=== PATIENT | male | born 1985 | race Caucasian/White ===

== ENCOUNTER 2016-09-16 09:54 | Emergency (ER) | payer SELFPAY ==
--- NOTE | 2016-09-16 10:41 | ER Document Report ---
ED General - General Chief Complaint: Cold Symptoms Stated Complaint: COUGH Mode of Arrival: Ambulatory Information source: Patient Notes: 31-year-old male presents with complaints of sore throat and intermittent fevers body aches over the past week and loss of voice yesterday. Patient admits to dry nonproductive cough TRAVEL OUTSIDE OF THE [place] IN LAST 30 DAYS: No - HPI Onset: Last week Onset/Duration: Persistent Quality of pain: Achy Severity: Mild Pain Level: 1 Associated symptoms: Nonproductive cough, Fever, Sore throat Exacerbated by: Denies Relieved by: Denies Similar symptoms previously: No Recently seen / treated by doctor: No - Related Data Allergies/Adverse Reactions: No Known Allergies Allergy (Verified 09/16/16 09:57) Past Medical History - Social History Smoking Status: Current Every Day Smoker Cigarette use (# per day): Yes Chew tobacco use (# tins/day): No Smoking Education Provided: No Family History: Reviewed & Not Pertinent Patient has suicidal ideation: No Patient has homicidal ideation: No Renal/ Medical History: Denies: Hx Peritoneal Dialysis Psychiatric Medical History: Reports: Hx Attention Deficit Hyperactivity Disorder, Hx Depression - Immunizations Immunizations up to date: Yes Hx Diphtheria, Pertussis, Tetanus Vaccination: Yes Review of Systems - Review of Systems Notes: REVIEW OF SYSTEMS: CONSTITUTIONAL : Admits fevers EENT: Admits sore throat loss of voice CARDIOVASCULAR: Denies chest pain. Denies palpitations or racing or irregular heart beat. Denies ankle edema. RESPIRATORY: Denies cough, cold, or chest congestion. Denies shortness of breath, difficulty breathing, or wheezing. GASTROINTESTINAL: Denies abdominal pain or distention. Denies nausea, vomiting , or diarrhea. Denies blood in vomitus, stools, or per rectum. Denies black, tarry stools. Denies constipation. GENITOURINARY: Denies difficulty urinating, painful urination, burning, frequency, blood in urine, or discharge. MUSCULOSKELETAL: Admits body aches SKIN: Denies rash, lesions or sores. HEMATOLOGIC : Denies easy bruising or bleeding. LYMPHATIC: Denies swollen, enlarged glands. NEUROLOGICAL: Denies confusion or altered mental status. Denies passing out or loss of consciousness. Denies dizziness or lightheadedness. Denies headache. Denies weakness or paralysis or loss of use of either side. Denies problems with gait or speech. Denies sensory loss, numbness, or tingling. Denies seizures. PSYCHIATRIC: Denies anxiety or stress. Denies depression, suicidal ideation, or homicidal ideation. ALL OTHER SYSTEMS REVIEWED AND NEGATIVE. Dictation was performed using [employer] voice recognition software PHYSICAL EXAMINATION: GENERAL: Well-appearing, well-nourished and in no acute distress. HEAD: Atraumatic, normocephalic. EYES: Pupils equal round and reactive to light, extraocular movements intact, sclera anicteric, conjunctiva are normal. ENT: Nares patent, oropharynx clear without exudates. Moist mucous membranes. NECK: Normal range of motion, supple without lymphadenopathy LUNGS: Breath sounds clear to auscultation bilaterally and equal. No wheezes rales or rhonchi. HEART: Regular rate and rhythm without murmurs ABDOMEN: Soft, nontender, nondistended abdomen. No guarding, no rebound. No masses appreciated. Musculoskeletal: Normal range of motion, no pitting or edema. No cyanosis. NEUROLOGICAL: Cranial nerves grossly intact. Normal speech, normal gait. Normal sensory, motor exams PSYCH: Normal mood, normal affect. SKIN: Warm, Dry, normal turgor, no rashes or lesions noted. Physical Exam - Vital signs Vitals: Temp Pulse Resp BP Pulse Ox 98.2 F 93 16 144/78 H 98 09/16/16 09:58 09/16/16 09:58 09/16/16 09:58 09/16/16 09:58 09/16/16 09:58 Course - Re-evaluation Re-evalutation: 09/16/16 10:41 Physical examination noted no significant abnormality. Sharp influenza are pending but patient looks well otherwise and has laryngitis at this point 09/16/16 11:05 Strep is positive, influenza negative patient will be treated with amoxicillin otherwise well-appearing in no distress 09/16/16 11:08 After performing a Medical Screening Examination, I estimate there is LOW risk for ACUTE CORONARY SYNDROME, RESPIRATORY FAILURE, SEPSIS OR MENINGITIS, thus I consider the discharge disposition reasonable. The patient and I have discussed the diagnosis and risks, and we agree with discharging home with close follow- up. We also discussed returning to the Emergency Department immediately if new or worsening symptoms occur. We have discussed the symptoms which are most concerning (e.g., changing or worsening pain, trouble swallowing or breathing, neck stiffness, fever) that necessitate immediate return. - Vital Signs Vital signs: Temp Pulse Resp BP Pulse Ox 98.2 F 93 16 144/78 H 98 09/16/16 09:58 09/16/16 09:58 09/16/16 09:58 09/16/16 09:58 09/16/16 09:58 Discharge - Discharge Clinical Impression: Strep pharyngitis, Body aches Fever Qualifiers: Fever type: unspecified Qualified Code(s): R50.9 - Fever, unspecified Condition: Stable Disposition: HOME, SELF-CARE Instructions: Strep Throat ([facility]) Additional Instructions: Follow up with your physician tomorrow for further care or return to the ED IMMEDIATELY if symptoms worsen or new concerns occur Prescriptions: Amoxicillin 875 mg PO BID #20 tablet
[2016-09-16 11:18] VITALS: BP 130/83
== END 2016-09-16 11:21 | disposition home or self-care (01) ==
LOC: ER 09:54
DX: J02.0 Streptococcal pharyngitis (principal); R52 Pain, unspecified; R50.9 Fever, unspecified; R05 Cough; F17.210 Nicotine dependence, cigarettes, uncomplicated
CPT/HCPCS: 87804; 87880; 99283

== ENCOUNTER 2017-01-07 20:27 | Emergency (ER) | payer SELFPAY ==
--- NOTE | 2017-01-07 21:26 | RADIOLOGY REPORT (SQ) ---
EXAM DESCRIPTION: CHEST SINGLE VIEW COMPLETED DATE/TIME: 01/07/2017 9:17 pm REASON FOR STUDY: chest pain COMPARISON: November 2012 EXAM PARAMETERS: NUMBER OF VIEWS: One view. TECHNIQUE: Single frontal radiographic view of the chest acquired. RADIATION DOSE: NA LIMITATIONS: None. FINDINGS: LUNGS AND PLEURA: No opacities, masses or pneumothorax. No pleural effusion. MEDIASTINUM AND HILAR STRUCTURES: No masses. Contour normal. HEART AND VASCULAR STRUCTURES: Heart normal in size. Normal vasculature. BONES: No acute findings. HARDWARE: None in the chest. OTHER: No other significant finding. IMPRESSION: NO ACUTE RADIOGRAPHIC FINDING IN THE CHEST. TECHNICAL DOCUMENTATION: JOB ID: [id number]
[2017-01-07 21:30] LABS: ABSOLUTE EOSINOPHILS # (AUTO) 0.1 10^3/uL (0.0-0.6); ABSOLUTE LYMPHOCYTES (AUTO) 2.3 10^3/uL (0.5-4.7); ABSOLUTE MONOCYTES (AUTO) 0.8 10^3/uL (0.1-1.4); ABSOLUTE NEUT (AUTO) 4.8 10^3/uL (1.7-8.2); BASOPHILS % (AUTO) 0.6 % (0-2); EOSINOPHILS % (AUTO) 1.4 % (0-6); HEMATOCRIT 42.4 % (37.9-51.0); HEMOGLOBIN 14.5 g/dL (13.5-17.0); HGB HCT DIFFERENCE 1.1; LYMPHOCYTES % (AUTO) 28.9 % (13-45); MEAN CORPUSCULAR HEMOGLOBIN 32.1 pg (27.0-33.4); MEAN CORPUSCULAR HGB CONC 34.2 g/dL (32.0-36.0); MEAN CORPUSCULAR VOLUME 94 fl (80-97); MONOCYTES % (AUTO) 9.4 % (3-13); RED BLOOD COUNT 4.52 10^6/uL (4.35-5.55); RED CELL DISTRIBUTION WIDTH 12.4 % (11.5-14.0); SEGMENTED NEUTROPHILS % (AUTO) 59.7 % (42-78); WHITE BLOOD COUNT 8.1 10^3/uL (4.0-10.5)
[2017-01-07 21:48] LABS: ALANINE AMINOTRANSFERASE 41 U/L (21-72); ALBUMIN 4.4 g/dL (3.5-5.0); ALKALINE PHOSPHATASE 81 U/L (38-126); ANION GAP 12 (5-19); ASPARTATE AMINO TRANSFERASE 23 U/L (17-59); BILIRUBIN,DIRECT 0.3 mg/dL (0.0-0.4); BILIRUBIN,TOTAL 0.5 mg/dL (0.2-1.3); BLOOD UREA NITROGEN 14 mg/dL (7-20); CARBON DIOXIDE 25 mmol/L (22-30); CHLORIDE 106 mmol/L (98-107); CREATINE KINASE 174 U/L (55-170); CREATININE RESULT 0.76 mg/dL (0.52-1.25); GLUCOSE 83 mg/dL (75-110); SODIUM 142.5 mmol/L (137-145); TOTAL PROTEIN 7.5 g/dL (6.3-8.2)
[2017-01-07 22:12] LABS: CREATINE KINASE MB 1.01 ng/mL (<4.55)
[2017-01-07 22:18] LABS: TROPONIN I < 0.012 ng/mL
--- NOTE | 2017-01-07 22:24 | ER Document Report ---
ED General - General Chief Complaint: Chest Pain > 30 Stated Complaint: CHEST PAIN Time Seen by Provider: 01/07/17 22:11 Notes: Patient is a 31-year-old male comes emergency department for evaluation of sharp pains across the left side of his chest that have been present since yesterday. 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 He states that he was having some left-sided chest pains yesterday and he also had it this morning , he states it is improved now but he came in for evaluation. He denies any current symptoms including shortness of breath. He denies smoking, alcohol use , or any recreational drug use. He denies history of the same except for occasionally passing out secondary to heat stroke. He states his father had an ME but it was when he was elderly, no early cardiac disease in the family. TRAVEL OUTSIDE OF THE [place] IN LAST 30 DAYS: No - Related Data Allergies/Adverse Reactions: No Known Allergies Allergy (Verified 01/07/17 20:38) Home Medications: Current Home Medications Esomeprazole Mag Trihydrate [Nexium] 1 cap PO QAM 01/07/17 [History] Past Medical History - General Information source: Patient - Social History Smoking Status: Never Smoker Frequency of alcohol use: Occasional Drug Abuse: None Lives with: Family Family History: Reviewed & Not Pertinent Patient has suicidal ideation: No Patient has homicidal ideation: No Renal/ Medical History: Denies: Hx Peritoneal Dialysis GI Medical History: Reports: Hx Gastroesophageal Reflux Disease Psychiatric Medical History: Reports: Hx Attention Deficit Hyperactivity Disorder, Hx Depression Surgical Hx: Negative - Immunizations Immunizations up to date: Yes Hx Diphtheria, Pertussis, Tetanus Vaccination: Yes Review of Systems - Review of Systems Constitutional: No symptoms reported EENT: No symptoms reported Cardiovascular: See HPI Respiratory: No symptoms reported Gastrointestinal: No symptoms reported Genitourinary: No symptoms reported Male Genitourinary: No symptoms reported Musculoskeletal: See HPI Skin: No symptoms reported Hematologic/Lymphatic: No symptoms reported Neurological/Psychological: See HPI Physical Exam - Vital signs Vitals: Temp Pulse Resp BP Pulse Ox 98.2 F 92 20 129/80 H 96 01/07/17 20:39 01/07/17 20:39 01/07/17 20:39 01/07/17 20:39 01/07/17 20:39 Interpretation: Normal - General General appearance: Appears well, Alert In distress: None - HEENT Head: Normocephalic, Atraumatic Eyes: Normal Conjunctiva: Normal Extraocular movements intact: Yes Eyelashes: Normal Pupils: PERRL Nasal: Normal Mouth/Lips: Normal Mucous membranes: Normal Pharynx: Normal Neck: Normal - Respiratory Respiratory status: No respiratory distress Chest status: Tender - reproduceable tenderness over the left chest wall; no erythema, induration, swelling, or other abnormality noted Breath sounds: Normal Chest palpation: Normal - Cardiovascular Rhythm: Regular. No: Tachycardia Heart sounds: Normal auscultation, S1 appreciated, S2 appreciated Murmur: No - Abdominal Inspection: Normal Distension: No distension Bowel sounds: Normal Tenderness: Nontender Organomegaly: No organomegaly - Back Back: Normal, Nontender. No: Tender - Extremities General upper extremity: Normal inspection, Nontender, Normal color, Normal ROM , Normal temperature General lower extremity: Normal inspection, Nontender, Normal color, Normal ROM , Normal temperature, Normal weight bearing. 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 No hypertrophy. Patient has no murmur on examination. Cardiac monitoring during this stay shows no concerning arrhythmias or abnormalities. Chest x-ray unremarkable. CBC, chemistry, cardiac enzymes which were performed on protocol before I saw the patient are normal. Patient with no family history of early cardiac disease. CK is slightly elevated, patient has chest wall tenderness on the left side of his chest and this is worse with movement but it is still mild. I discussed all findings with patient in detail. Patient has not had symptoms since yesterday, symptoms have been while he was working outside in the heat. Very low suspicion of acute life-threatening arrhythmia or other acute life- threatening abnormality. I did discuss cardiology follow-up, referral placed. Discussed treatment, recommendations, return precautions. Patient states understanding and agreement. - Vital Signs Vital signs: Temp Pulse Resp BP Pulse Ox 97.4 F 92 16 122/73 100 01/07/17 22:45 01/07/17 20:39 01/07/17 22:46 01/07/17 22:47 01/07/17 22:46 - Laboratory Result Diagrams: 01/07/17 21:10 01/07/17 21:10 Laboratory results interpreted by me: 01/07/17 21:10 Creatine Kinase 174 H Discharge - Discharge Clinical Impression: Chest wall pain Episode of syncope Qualifiers: Syncope type: unspecified Qualified Code(s): R55 - Syncope and collapse Condition: Stable Disposition: HOME, SELF-CARE Additional Instructions: Your workup today including EKG, chest x-ray, and laboratory studies show no abnormality except a slightly elevated with your chest wall pain. Hydrate, take the anti-inflammatory as prescribed, I recommend a follow-up with the primary care referral for additional evaluation and also a follow-up with the cardiology referral for a Holter monitor testing as we discussed. Return to emergency department for any returned or worsening symptoms. Prescriptions: Naproxen 500 mg PO BID #20 tablet Forms: Return to Work Referrals: [facility] [Provider Group] - Follow up as needed REINA HEDRICK MD [ACTIVE STAFF] - Follow up as needed
[2017-01-07 22:52] VITALS: BP 122/73
--- NOTE | 2017-01-08 17:18 | EKG REPORT ---
SEVERITY:- NORMAL ECG - SINUS RHYTHM : Confirmed by: Saray Carter MD 08-Jan-2017 17:17:58
== END 2017-01-07 22:53 | disposition home or self-care (01) ==
LOC: ER 20:27
DX: R07.89 Other chest pain (principal); R55 Syncope and collapse; Z82.49 Family history of ischemic heart disease and other diseases of the circulatory system
CPT/HCPCS: 36415; 71010; 80053; 82550; 82553; 84484; 85025; 93005; 93010; 99285

== ENCOUNTER 2017-12-29 09:36 | Emergency (ER) | payer MEDICAID ==
[2017-12-29] MEDS ORDERED: DEXAMETHASONE SOD PHOS INJ 10 MG/1 ML VIAL IM ONE (10:10)
[2017-12-29] MEDS ORDERED: IPRATROPIUM/ALBUTEROL 0.5-2.5 MG/3 ML AMPUL NEB ONE (10:10)
--- NOTE | 2017-12-29 10:13 | ER Document Report ---
ED Respiratory Problem - General Chief Complaint: Cough Stated Complaint: COUGH Time Seen by Provider: 12/29/17 10:05 Mode of Arrival: Ambulatory Information source: Patient Notes: 32-year-old male presents to ED for cough congestion for a month and half. He states he did have some clear drainage but that is gone. He states he has had no fevers. He states that last night that the cough got much worse and at this point he decided to come to the emergency room. His last night when he was coughing he had some current discomfort in his chest. Is alert and oriented respirations regular and unlabored speaking in full sentences. He does cough when he tries to take deep breaths and has a mild wheeze. TRAVEL OUTSIDE OF THE [place] IN LAST 30 DAYS: No - HPI Patient complains to provider of: Cough Onset: Other - Month and a half Duration: Continuous Initiating Event: URI Quality of pain: Other - States his chest had some discomfort last night when he was coughing Severity: Mild Pain Level: 1 Context: Smoker Cough: Nonproductive - She had clear drainage earlier in the month but none now Sputum amount: None Associated symptoms: Congestion, Cough, PND, Runny nose. denies: Fever Similar symptoms previously: Yes Recently seen / treated by doctor: No - Related Data Allergies/Adverse Reactions: No Known Allergies Allergy (Verified 01/07/17 20:38) Past Medical History - General Information source: Patient - Social History Smoking Status: Current Every Day Smoker Cigarette use (# per day): Yes - Cigarettes a day Chew tobacco use (# tins/day): No Smoking Education Provided: Yes - 4 minutes Frequency of alcohol use: None Drug Abuse: None Lives with: Spouse/Significant other Family History: Reviewed & Not Pertinent Patient has suicidal ideation: No Patient has homicidal ideation: No Pulmonary Medical History: Reports: None EENT Medical History: Reports: None Neurological Medical History: Reports: None Endocrine Medical History: Reports: None Renal/ Medical History: Reports: None Malignancy Medical History: Reports None GI Medical History: Reports: Hx Gastroesophageal Reflux Disease Musculoskeletal Medical History: Reports Hx Musculoskeletal Trauma - Nose and finger Skin Medical History: Reports None Psychiatric Medical History: Reports: Hx Attention Deficit Hyperactivity Disorder, Hx Depression Traumatic Medical History: Reports: Hx Fractures Infectious Medical History: Reports: None - Bushra finger Surgical Hx: Negative Past Surgical History: Reports: None - Immunizations Immunizations up to date: Yes Hx Diphtheria, Pertussis, Tetanus Vaccination: Yes Review of Systems - Review of Systems Constitutional: No symptoms reported EENT: No symptoms reported Cardiovascular: No symptoms reported Respiratory: Cough, Short of breath, Wheezing Gastrointestinal: No symptoms reported Genitourinary: No symptoms reported Male Genitourinary: No symptoms reported Musculoskeletal: No symptoms reported Skin: No symptoms reported Hematologic/Lymphatic: No symptoms reported Neurological/Psychological: No symptoms reported Physical Exam - Vital signs Vitals: Temp Pulse Resp BP Pulse Ox 97.8 F 96 18 138/86 H 97 12/29/17 09:42 12/29/17 09:42 12/29/17 09:42 12/29/17 09:42 12/29/17 09:42 Interpretation: Normal - General General appearance: Appears well, Alert - HEENT Head: Normocephalic, Atraumatic Eyes: Normal Pupils: PERRL - Respiratory Respiratory status: No respiratory distress Chest status: Nontender Breath sounds: Nonproductive cough, Wheezing Chest palpation: Normal - Cardiovascular Rhythm: Regular Heart sounds: Normal auscultation Murmur: No - Abdominal Inspection: Normal Distension: No distension Bowel sounds: Normal Tenderness: Nontender Organomegaly: No organomegaly - Back Back: Normal, Nontender - Extremities General upper extremity: Normal inspection, Nontender, Normal color, Normal ROM , Normal temperature General lower extremity: Normal inspection, Nontender, Normal color, Normal ROM , Normal temperature, Normal weight bearing. No: Maira's sign - Neurological Neuro grossly intact: Yes Cognition: Normal Orientation: AAOx4 Calli Coma Scale Eye Opening: Spontaneous [place] Coma Scale Verbal: Oriented [place] Coma Scale Motor: Obeys Commands Calli Coma Scale Total: 15 Speech: Normal Motor strength normal: LUE, RUE, LLE, RLE Sensory: Normal - Psychological Associated symptoms: Normal affect, Normal mood - Skin Skin Temperature: Warm Skin Moisture: Dry Skin Color: Normal Course - Re-evaluation Re-evalutation: 12/29/17 11:50 X-rays discussed with patient and written report of x-ray given the patient. Patient of assessment was consistent with an upper respiratory infection with wheezing. He was treated with albuterol and steroids. He will be discharged home with an albuterol inhaler prescription and steroids. He was instructed to follow-up with the primary doctors. After performing a Medical Screening Examination, I estimate there is LOW risk for ACUTE CORONARY SYNDROME, RESPIRATORY FAILURE, SEPSIS OR MENINGITIS, thus I consider the discharge disposition reasonable. I have reevaluated this patient multiple times and no significant life threatening changes are noted. The patient and I have discussed the diagnosis and risks, and we agree with discharging home with close follow-up. We also discussed returning to the Emergency Department immediately if new or worsening symptoms occur. We have discussed the symptoms which are most concerning (e.g., changing or worsening pain, trouble swallowing or breathing, neck stiffness, fever) that necessitate immediate return. - Vital Signs Vital signs: Temp Pulse Resp BP Pulse Ox 97.8 F 93 16 133/77 H 97 12/29/17 11:57 12/29/17 11:57 12/29/17 11:57 12/29/17 11:57 12/29/17 11:57 - Diagnostic Test Radiology reviewed: Image reviewed, Reports reviewed Discharge - Discharge Clinical Impression: URI (upper respiratory infection) Qualifiers: URI type: unspecified URI Qualified Code(s): J06.9 - Acute upper respiratory infection, unspecified Condition: Stable Disposition: HOME, SELF-CARE Instructions: Family Physicians / Practices Additional Instructions: UPPER RESPIRATORY ILLNESS: You have a viral infection of the respiratory passages -- a "cold." This common infection causes nasal congestion, drainage, and often sore throat and cough. It is highly contagious. The disease usually lasts about 10 to 14 days. There is no "cure" for the viral infection -- it must run its course. If there is a complication, such as bacterial infection in the nose, sinuses, middle ear, or bronchial tubes, antibiotics may be required. The antibiotics won't affect the virus. Drink plenty of fluids. A humidifier may help. An expectorant medication or decongestant may make you more comfortable. Use acetaminophen or ibuprofen for fever or aches. See the doctor if fever persists over two days, if there is any significant worsening of your symptoms, or if you simply fail to improve as expected. BRONCHOSPASM: You have tightness in the bronchial tubes, called bronchospasm. This often occurs with bronchial infections. Allergies, inhaled chemicals, and polluted or cold air can also provoke bronchospasm. It's more likely in patients with asthma in the family. Emergency treatment of bronchospasm may include adrenaline shots or bronchodilator aerosol. You may feel lightheaded and have a rapid pulse for an hour or two. Rest and get plenty of fluids. At home, we'll treat you with a bronchodilator inhaler. Antibiotics and corticosteroids may be required for some patients. Until you recover, avoid chemical fumes, dusts, pollens, and exercising in very cold or dry air. If you smoke, stop now!! If you develop a fever, increased wheezing, chest pain, or severe shortness of breath, you should contact the doctor immediately. COUGH-SUPPRESSANT & EXPECTORANT MEDICATION: You are to use a cough medication as needed for relief of symptoms. This medicine is a combination of an expectorant (to make the mucous thinner and more easily "coughed up") and a cough suppressant (to reduce the frequency of coughing). The cough-suppressant medicine is related to narcotics. You may experience mild nausea and sleepiness. Some patients who are very sensitive to narcotics may have stomach pain from this medicine. Taking the medicine with food reduces these side effects. Do not drive or work with machinery until you know how this medicine affects you. The expectorant should have no side effects. Iodine-containing expectorants (such as organidin) should not be taken by persons with active thyroid disease unless approved by your doctor. Call the doctor if you develop shortness of breath, hives, rash, itching, lightheadedness, or severe nausea and vomiting. INHALED BRONCHODILATORS: You have received a treatment of and/or prescription for an inhaled bronchodilator -- a medication which stimulates the airways in the lung to dilate. This improves the flow of air in asthma, bronchitis, and emphysema. These medicines have some similarity to adrenaline, and can cause similar side effects: shakiness, racing heart, and a sense of nervousness. These side effects decrease with time. Contact your doctor if these side effects are severe. Do not over-use the medicine. Too-frequent use of the inhaler may make it ineffective. Call your doctor if the inhaler is not controlling your symptoms at the prescribed doses. STEROID MEDICATION: You have been given an injection of or oral medicine of the cortisone/ steroid class. This medication is used to control inflammation or allergy. Gerardo t is usually only given for a short period of time, until the acute process subsides. There are usually no side effects from short-term use of cortisone-like medications. Some persons feel an increased sense of well-being and are not sleepy at bedtime. Long-term use of cortisone medications is best avoided, unless required for a severe condition. If your condition does not remit, or relapses after the course of corticosteroid medication, you should consult your physician. USE OF ACETAMINOPHEN (Tylenol): Acetaminophen may be taken for pain relief or fever control. It's much safer than aspirin, offering a wider range of "safe" dosages. It is safe during . Some brand names are Tylenol, Panadol, Datril, Anacin 3, Tempra, and Liquiprin. Acetaminophen can be repeated every four hours. The following are maximum recommended dosages: >89 pounds or adults 650 mg to 900 mg Acetaminophen can be repeated every four hours. Maximum dose not to exceed 4000 mg a day. SMOKING: If you smoke, you should stop smoking. The tar and chemicals in cigarette smoke are harmful. Smoking has been shown to cause: emphysema chronic bronchitis lung cancer mouth and throat cancer stomach and pancreas cancer premature aging defects In addition, smoking increases ear and lung infections in children of smokers. FOLLOW-UP CARE: If you have been referred to a physician for follow-up care, call the physician s office for an appointment as you were instructed or within the next two days. If you experience worsening or a significant change in your symptoms, notify the physician immediately or return to the Emergency Department at any time for re-evaluation. Prescriptions: Albuterol Sulfate [Proair HFA Inhalation Aerosol 8.5 gm MDI] 2 puff IH Q4H PRN # 1 mdi PRN Reason: Prednisone [Sterapred Ds] 1 pkg PO ASDIR PRN 12 Days [email or web address] PRN Reason: Forms: Elevated Blood Pressure, Smoking Cessation Education, Return to Work
[2017-12-29] MEDS: ALBUTEROL SULFATE 0.083% NEB 2.5 MG/3 ML AMPUL NEB SCH ×2 (10:18→10:36)
--- NOTE | 2017-12-29 11:23 | RADIOLOGY REPORT (SQ) ---
EXAM DESCRIPTION: CHEST 2 VIEWS COMPLETED DATE/TIME: 12/29/2017 10:55 am REASON FOR STUDY: cough congestion COMPARISON: Chest films 01/07/2017, 11/24/2012, 06/15/2010 EXAM PARAMETERS: NUMBER OF VIEWS: two views TECHNIQUE: Digital Frontal and Lateral radiographic views of the chest acquired. RADIATION DOSE: NA LIMITATIONS: none FINDINGS: LUNGS AND PLEURA: No opacities, masses or pneumothorax. No pleural effusion. MEDIASTINUM AND HILAR STRUCTURES: No masses or contour abnormalities. HEART AND VASCULAR STRUCTURES: Heart normal size. No evidence for failure. BONES: No acute findings. HARDWARE: None in the chest. OTHER: No other significant finding. IMPRESSION: NO ACUTE RADIOGRAPHIC FINDING IN THE CHEST. TECHNICAL DOCUMENTATION: JOB ID: [id number] [employer]- All Rights Reserved Reading location - IP/workstation name: [email or web address]
[2017-12-29 12:00] VITALS: BP 133/77
== END 2017-12-29 12:00 | disposition home or self-care (01) ==
LOC: ER 09:36
DX: J06.9 Acute upper respiratory infection, unspecified (principal); F17.210 Nicotine dependence, cigarettes, uncomplicated
CPT/HCPCS: 94640; 99283; 96372; 71046; J1100; J7620

== ENCOUNTER 2017-12-31 10:00 | Emergency (ER) | payer MEDICAID ==
--- NOTE | 2017-12-31 10:28 | ER Document Report ---
ED Medical Screen (RME) - General Chief Complaint: Shortness Of Breath Stated Complaint: SHORT OF BREATH/COUGHING Time Seen by Provider: 12/31/17 10:18 Notes: RAPID MEDICAL EVALUATION DISCLOSURE I have seen this patient as part of a Rapid Medical Evaluation and, if applicable, placed any initially appropriate orders. The patient will be seen and fully evaluated, including a full history and physical exam, by a provider ( in Main ED or Fast Track) when a room becomes available. 32-year-old male here with complaints of shortness of breath cough productive of bloody sputum chest tightness ongoing for the past month. 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 He has tried cough medication without relief. He was seen here several days ago and was prescribed prednisone and albuterol inhaler and states these are not helping whatsoever. He reports that smoking a cigarette will help soothe his cough for about 2 hours but then he starts to cough again and have the other symptoms. His tightness is not worse with exertion but is worse with lying flat. He denies any history of PE DVT but has a strong family history of same. He does also do a lot of driving and recently had an extended car ride to [place]. EXAM CTAB Tachycardic TRAVEL OUTSIDE OF THE [place] IN LAST 30 DAYS: No - Related Data Allergies/Adverse Reactions: No Known Allergies Allergy (Verified 12/31/17 10:24) Past Medical History - Social History Chew tobacco use (# tins/day): No Frequency of alcohol use: Occasional Drug Abuse: None Renal/ Medical History: Denies: Hx Peritoneal Dialysis GI Medical History: Reports: Hx Gastroesophageal Reflux Disease Musculoskeltal Medical History: Reports Hx Musculoskeletal Trauma - Nose and finger Psychiatric Medical History: Reports: Hx Attention Deficit Hyperactivity Disorder, Hx Depression Traumatic Medical History: Reports: Hx Fractures - Immunizations Immunizations up to date: Yes Hx Diphtheria, Pertussis, Tetanus Vaccination: Yes Physical Exam - Vital signs Vitals: Temp Pulse Resp BP Pulse Ox 97.7 F 111 H 17 128/80 H 97 12/31/17 10:13 12/31/17 10:13 12/31/17 10:13 12/31/17 10:13 12/31/17 10:13 Course - Vital Signs Vital signs: Temp Pulse Resp BP Pulse Ox 97.7 F 111 H 17 128/80 H 97 12/31/17 10:13 12/31/17 10:13 12/31/17 10:13 12/31/17 10:13 12/31/17 10:13
--- NOTE | 2017-12-31 11:26 | RADIOLOGY REPORT (SQ) ---
EXAM DESCRIPTION: CTA CHEST COMPLETED DATE/TIME: 12/31/2017 11:10 am REASON FOR STUDY: coughing blood SOB; eval PE COMPARISON: CT chest 02/19/2015 TECHNIQUE: CT scan of the chest performed using helical scanning technique with dynamic intravenous contrast injection. Images reviewed with lung, soft tissue and bone windows. Reconstructed coronal and sagittal MPR images reviewed. Additional 3 dimensional post-processing performed to develop Maximal Intensity Projection images (PA P). All images stored on PACS. All CT scanners at this facility use dose modulation, iterative reconstruction, and/or weight based d osing when appropriate to reduce radiation dose to as low as reasonably achievable (ALARA). [facility]: Dose Right [facility]: CareDose [facility]: Dose Right [facility]: Teradose 4D [facility]: Peter Blueberry CONTRAST TYPE AND DOSE: contrast/concentration: Isovue 370.00 mg/ml; Total Contrast Delivered: 65.0 ml; Total Saline Delivered: 110.0 ml Contrast bolus optimized for the pulmonary arteries. Not diagnostic for the aorta. RENAL FUNCTION: None required. The patient is less than 50 years old. RADIATION DOSE: CT Rad equipment meets quality standard of care and radiation dose reduction techniq ues were employed. CTDIvol: 9.4 - 9.5 mGy. DLP: 358 mGy-cm. . LIMITATIONS: None. FINDINGS: LUNGS AND PLEURA: No masses, infiltrates, or pneumothorax. No pleural effusions or pleura l calcifications. AORTA AND GREAT VESSELS: No aneurysm. Contrast bolus not optimized for the aorta. HEART: No pericardial effusion. No significant coronary artery calcifications. PULMONARY ARTERIES: No emboli visualized in the main pulmonary arteries or the segmental branches. HILAR AND MEDIASTINAL STRUCTURES: No identified masses or abnormal nodes. HARDWARE: None in the chest. UPPER ABDOMEN: No significant findings. Limited exam. THYROID AND OTHER SOFT TISSUES: No masses. No adenopathy. BONES: No acute or significant finding. 3D MIPS: Confirm above findings. OTHER: No other significant finding. IMPRESSION: NORMAL CTA OF THE CHEST. NO PULMONARY EMBOLI. COMMENT: Quality ID # [id number]: Final reports with documentation of one or more dose reduction techniques (e.g., Automated exposure control, adjustment of the mA and/or kV according to patient size, use of iterative reconstruction technique) TECHNICAL DOCUMENTATION: JOB ID: [id number] [employer]- All Rights Reserved Reading location - IP/workstation name: [email or web address]
--- NOTE | 2017-12-31 13:18 | ER Document Report ---
ED Respiratory Problem - General Chief Complaint: Shortness Of Breath Stated Complaint: SHORT OF BREATH/COUGHING Time Seen by Provider: 12/31/17 10:18 Mode of Arrival: Ambulatory Information source: Patient Notes: Patient is a 32-year-old female who presents to the ER today for shortness of breath 1 month. 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 Patient had a normal chest x-ray at that time and was discharged home. Patient has no history of asthma, has not had any coughing, fever, chills, chest pain. Patient has no history of anxiety. TRAVEL OUTSIDE OF THE [place] IN LAST 30 DAYS: No - Related Data Allergies/Adverse Reactions: No Known Allergies Allergy (Verified 12/31/17 10:24) Past Medical History - General Information source: Patient - Social History Smoking Status: Current Every Day Smoker Chew tobacco use (# tins/day): No Frequency of alcohol use: Occasional Drug Abuse: None Family History: Reviewed & Not Pertinent Patient has suicidal ideation: No Patient has homicidal ideation: No Renal/ Medical History: Denies: Hx Peritoneal Dialysis GI Medical History: Reports: Hx Gastroesophageal Reflux Disease Musculoskeletal Medical History: Reports Hx Musculoskeletal Trauma - Nose and finger Psychiatric Medical History: Reports: Hx Attention Deficit Hyperactivity Disorder, Hx Depression Traumatic Medical History: Reports: Hx Fractures - Immunizations Immunizations up to date: Yes Hx Diphtheria, Pertussis, Tetanus Vaccination: Yes Review of Systems - Review of Systems Constitutional: No symptoms reported EENT: No symptoms reported Cardiovascular: No symptoms reported Respiratory: See HPI Gastrointestinal: No symptoms reported Genitourinary: No symptoms reported Male Genitourinary: No symptoms reported Musculoskeletal: No symptoms reported Skin: No symptoms reported Hematologic/Lymphatic: No symptoms reported Neurological/Psychological: No symptoms reported Physical Exam - Vital signs Vitals: Temp Pulse Resp BP Pulse Ox 97.7 F 111 H 17 128/80 H 97 12/31/17 10:13 12/31/17 10:13 12/31/17 10:13 12/31/17 10:13 12/31/17 10:13 - Notes Notes: PHYSICAL EXAMINATION: GENERAL: Anxious appearing, but in no acute distress. HEAD: Atraumatic, normocephalic. EYES: Pupils equal round and reactive to light, extraocular movements intact, sclera anicteric, conjunctiva are normal. ENT: ear canals without erythema or foreign body, TMs pearly díaz with good bony landmarks, nares patent, oropharynx clear without exudates. Moist mucous membranes. NECK: Normal range of motion, supple without lymphadenopathy LUNGS: lurching forward his upper body, otherwise CTAB and equal. No wheezes rales or rhonchi. HEART: Regular rate and rhythm without murmurs ABDOMEN: Soft, no tenderness. No guarding, no rebound BACK: no vertebral tenderness, normal ROM GI/: no CVA tenderness EXTREMITIES: Normal range of motion, no pitting edema. No cyanosis. NEUROLOGICAL: Cranial nerves grossly intact. Normal sensory/motor exams. PSYCH: anxious SKIN: Warm, Dry, normal turgor, no rashes or lesions noted Course - Re-evaluation Re-evalutation: 12/31/17 16:54 Patient has a normal pulse ox today of 98% on room air, respirations of 20 and below the entire time here in the emergency department. The only abnormal vital sign patient had here was tachycardia as high as 111 bpm. Patient has a normal chest x-ray from 2 days ago and a normal CTA today that was ordered in triage to rule out pulmonary embolism. Patient is lurching his upper body forward stating that he is short of breath but his lungs are clear to auscultation and he showing no other signs of shortness of breath. Patient has a normal VBG. does state that he has been under a lot of stress recently. Patient stopped having any symptoms after Ativan was given today. I will provide patient with Vistaril as needed and advised that he follow-up with mental health or at least his primary care provider. I did offer consultation with mental health today but patient declines. - Vital Signs Vital signs: Temp Pulse Resp BP Pulse Ox 97.7 F 111 H 12 118/82 98 12/31/17 16:19 12/31/17 10:13 12/31/17 16:16 12/31/17 16:16 12/31/17 16:16 Discharge - Discharge Clinical Impression: SOB (shortness of breath), Anxiety Condition: Stable Disposition: HOME, SELF-CARE Additional Instructions: Return immediately for any new or worsening symptoms. Follow up with primary care provider, call tomorrow to make followup appointment. I believe all of your symptoms are being caused by panic or anxiety about not being able to take a deep breath, but is actually causing you to feel like you can't. All your lung workup today is normal. If you are still concerned about something going on in your lungs, PLEASE follow up with Dr. Malloy, who's a lung specialist, he'd be happy to see you! I've prescribed you an anti-anxiety medication because when I gave you some today, it took away your symptoms completely. Please take it every 6-8 hours as needed for your symptoms. Follow up with your primary care provider. Prescriptions: Hydroxyzine Pamoate [Vistaril 25 mg Capsule] 1 - 2 cap PO Q8 PRN #15 capsule PRN Reason: Forms: Return to Work
[2017-12-31] MEDS ORDERED: LORAZEPAM INJ 2 MG/1 ML VIAL IV ONE (13:24)
[2017-12-31 14:52] LABS: VENOUS BLOOD BASE EXCESS -0.3 mmol/L; VENOUS BLOOD HCO3 25.3 mmol/L (20-32); VENOUS BLOOD PCO2 44.6 mmHg (35-63); VENOUS BLOOD PH 7.37 (7.30-7.42)
[2017-12-31 16:19] VITALS: BP 118/82
--- NOTE | 2017-12-31 22:57 | EKG REPORT ---
SEVERITY:- OTHERWISE NORMAL ECG - SINUS TACHYCARDIA : Confirmed by: Janes Lofton 31-Dec-2017 22:57:07
== END 2017-12-31 16:27 | disposition home or self-care (01) ==
LOC: ER 10:00
DX: F41.9 Anxiety disorder, unspecified (principal); R06.02 Shortness of breath; R00.0 Tachycardia, unspecified; F17.200 Nicotine dependence, unspecified, uncomplicated
CPT/HCPCS: 93005; 99285; 96374; 36415; 82803; 71275; 93010; J2060

== ENCOUNTER 2018-02-12 06:29 | Emergency (ER) | payer SELFPAY ==
[2018-02-12] MEDS ORDERED: NORMAL SALINE 1000 ML 1,000 ML IV ONE ×2 (06:47→07:39)
--- NOTE | 2018-02-12 06:48 | ER Document Report ---
ED General - General Chief Complaint: Abdominal Cramping Stated Complaint: POSSIBLE DEHYDRATION TRAVEL OUTSIDE OF THE [place] IN LAST 30 DAYS: No - HPI Patient complains to provider of: Dehydration Notes: Pleasant 32-year-old male presents concern for dehydration. Patient was working on his feet all last evening. Comes in with cramping pain in his upper extremities. Pain is 6/10 without radiation nothing is made it better or worse. Patient is still making urine. Denies fever - Related Data Allergies/Adverse Reactions: No Known Allergies Allergy (Verified 12/31/17 10:24) Past Medical History - Social History Smoking Status: Unknown if Ever Smoked Family History: Reviewed & Not Pertinent Renal/ Medical History: Denies: Hx Peritoneal Dialysis GI Medical History: Reports: Hx Gastroesophageal Reflux Disease Musculoskeletal Medical History: Reports Hx Musculoskeletal Trauma - Nose and finger Psychiatric Medical History: Reports: Hx Attention Deficit Hyperactivity Disorder, Hx Depression Traumatic Medical History: Reports: Hx Fractures - Immunizations Immunizations up to date: Yes Hx Diphtheria, Pertussis, Tetanus Vaccination: Yes Review of Systems - Review of Systems Notes: REVIEW OF SYSTEMS: CONSTITUTIONAL: -fevers, -chills EENT: -eye pain, -difficulty swallowing, -nasal congestion CARDIOVASCULAR: -chest pain, -syncope. RESPIRATORY: -cough, -SOB GASTROINTESTINAL: -abdominal pain, -nausea, -vomiting, -diarrhea GENITOURINARY: -dysuria, -hematuria MUSCULOSKELETAL: -back pain, -neck pain SKIN: -rash or skin lesions. HEMATOLOGIC: -easy bruising or bleeding. LYMPHATIC: -swollen, enlarged glands. NEUROLOGICAL: -altered mental status or loss of consciousness, -headache, - neurologic symptoms PSYCHIATRIC: -anxiety, -depression. ALL OTHER SYSTEMS REVIEWED AND NEGATIVE. Physical Exam - Vital signs Vitals: Temp Pulse Resp BP Pulse Ox 97.7 F 81 18 132/75 H 99 02/12/18 06:36 02/12/18 06:36 02/12/18 06:36 02/12/18 06:36 02/12/18 06:36 - Notes Notes: PHYSICAL EXAMINATION: GENERAL: Well-appearing, well-nourished and in no acute distress. HEAD: Atraumatic, normocephalic. EYES: Pupils equal round and reactive to light, extraocular movements intact, sclera anicteric, conjunctiva are normal. ENT: nares patent, oropharynx clear without exudates. Moist mucous membranes. NECK: Normal range of motion, supple without lymphadenopathy LUNGS: Breath sounds clear to auscultation bilaterally and equal. No wheezes rales or rhonchi. HEART: Regular rate and rhythm without murmurs ABDOMEN: Soft, nontender, normoactive bowel sounds. No guarding, no rebound. No masses appreciated. EXTREMITIES: Normal range of motion, no pitting or edema. No cyanosis. NEUROLOGICAL: Cranial nerves grossly intact. Normal speech, normal gait. Normal sensory and motor exams. PSYCH: Normal mood, normal affect. SKIN: Warm, Dry, normal turgor, no rashes or lesions noted. Course - Re-evaluation Re-evalutation: 02/12/18 08:51 Well-appearing man presents with some cramping. Given 2 L fluid resuscitation. Patient's extensive lab workup was unremarkable for possible dehydration. Patient be discharged home improved - Vital Signs Vital signs: Temp Pulse Resp BP Pulse Ox 97.7 F 81 18 132/75 H 99 02/12/18 06:36 02/12/18 06:36 02/12/18 06:36 02/12/18 06:36 02/12/18 06:36 - Laboratory Result Diagrams: 02/12/18 06:59 02/12/18 06:59 Laboratory results interpreted by me: 02/12/18 06:59 Sodium 146.1 H Magnesium 2.6 H Total Bilirubin 1.4 H Total Protein 8.7 H Discharge - Discharge Clinical Impression: Dehydration Condition: Stable Disposition: HOME, SELF-CARE Instructions: Dehydration ([facility])
[2018-02-12 07:10] LABS: ABSOLUTE EOSINOPHILS # (AUTO) 0.1 10^3/uL (0.0-0.6); ABSOLUTE MONOCYTES (AUTO) 0.6 10^3/uL (0.1-1.4); ABSOLUTE NEUT (AUTO) 3.2 10^3/uL (1.7-8.2); BASOPHILS % (AUTO) 0.5 % (0-2); EOSINOPHILS % (AUTO) 1.5 % (0-6); HEMATOCRIT 45.3 % (37.9-51.0); HEMOGLOBIN 15.6 g/dL (13.5-17.0); LYMPHOCYTES % (AUTO) 33.2 % (13-45); MEAN CORPUSCULAR HEMOGLOBIN 31.8 pg (27.0-33.4); MEAN CORPUSCULAR HGB CONC 34.4 g/dL (32.0-36.0); MEAN CORPUSCULAR VOLUME 93 fl (80-97); MONOCYTES % (AUTO) 10.5 % (3-13); PLATELET COUNT 320 10^3/uL (150-450); RED CELL DISTRIBUTION WIDTH 12.8 % (11.5-14.0); SEGMENTED NEUTROPHILS % (AUTO) 54.3 % (42-78); TOTAL CELLS COUNTED % (AUTO) 100 %; WHITE BLOOD COUNT 5.9 10^3/uL (4.0-10.5)
[2018-02-12 07:29] LABS: ALANINE AMINOTRANSFERASE 50 U/L (21-72); ALBUMIN 4.8 g/dL (3.5-5.0); ALKALINE PHOSPHATASE 101 U/L (38-126); ANION GAP 15 (5-19); ASPARTATE AMINO TRANSFERASE 32 U/L (17-59); BILIRUBIN,DIRECT 0.3 mg/dL (0.0-0.4); BILIRUBIN,TOTAL 1.4 mg/dL (0.2-1.3); BLOOD UREA NITROGEN 19 mg/dL (7-20); CALCIUM 9.1 mg/dL (8.4-10.2); CARBON DIOXIDE 28 mmol/L (22-30); CHLORIDE 103 mmol/L (98-107); GLUCOSE 103 mg/dL (75-110); POTASSIUM 3.8 mmol/L (3.6-5.0); SODIUM 146.1 mmol/L (137-145); TOTAL PROTEIN 8.7 g/dL (6.3-8.2)
--- NOTE | 2018-02-12 07:40 | EKG REPORT ---
SEVERITY:- ABNORMAL ECG - SINUS RHYTHM PROBABLE LEFT VENTRICULAR HYPERTROPHY : Confirmed by: Cesar Pedroza MD 12-Feb-2018 07:38:59
[2018-02-12 08:32] LABS: APPEARANCE,URINE CLEAR; BILIRUBIN,URINE NEGATIVE (NEGATIVE); COLOR,URINE YELLOW; GLUCOSE, URINE NEGATIVE (NEGATIVE); KETONES,URINE NEGATIVE (NEGATIVE); LEUKOCYTE ESTERASE,URINE NEGATIVE (NEGATIVE); NITRITE,URINE NEGATIVE (NEGATIVE); PROTEIN,URINE NEGATIVE (NEGATIVE); URINE SPECIFIC GRAVITY 1.015; UROBILINOGEN,URINE NEGATIVE mg/dL (<2.0)
[2018-02-12 09:15] VITALS: BP 111/51
== END 2018-02-12 09:15 | disposition home or self-care (01) ==
LOC: ER 06:29
DX: E86.0 Dehydration (principal); R10.9 Unspecified abdominal pain; R25.2 Cramp and spasm
CPT/HCPCS: 93005; 99284; 96360; 96361; 36415; 83605; 83735; 85025; 80053; 81001; 93010; J7030

== ENCOUNTER 2018-05-31 16:30 | Emergency (ER) | payer SELFPAY ==
[2018-05-31 17:35] VITALS: BP 132/87
[2018-05-31] MEDS ORDERED: PSEUDOEPHEDRINE HCL 30 MG TABLET PO ONE (17:35)
[2018-05-31] MEDS ORDERED: GUAIFENESIN 600 MG TABLET.SA PO ONE (17:35)
[2018-05-31] MEDS ORDERED: IBUPROFEN 600 MG TABLET PO ONE (17:35)
[2018-05-31] MEDS ORDERED: LORATADINE 10 MG TABLET PO ONE (17:35)
--- NOTE | 2018-05-31 17:37 | ER Document Report ---
ED Respiratory Problem - General Chief Complaint: Congestion Stated Complaint: COUGH,CONGESTION Time Seen by Provider: 05/31/18 17:18 Mode of Arrival: Ambulatory Information source: Patient Notes: 33-year-old male presented to ED for cough cold congestion sore throat with fevers according to patient up to 102 including this morning. He states his fevers are on and off. He states he is not taking any alhs-mhy-gnkgkjg medications today but his temperature is 98.1 in the emergency room. He states he is also had trouble breathing but his O2 sats are 97%. He has lungs are clear respirations are regular and unlabored speaking in full sentences. He is able to walk with a even steady gait. TRAVEL OUTSIDE OF THE [place] IN LAST 30 DAYS: No - HPI Patient complains to provider of: Cough Onset: Last week Initiating Event: URI Quality of pain: Achy Severity: Mild Pain Level: 2 Short of Breath: Mild Cough: Productive Sputum amount: Moderate Sputum color: Green Sputum consistency: Thick Associated symptoms: Congestion, Cough, Fever, PND, Runny nose, Sinus pain/ pressure, Sore Throat Similar symptoms previously: Yes Recently seen / treated by doctor: No - Related Data Allergies/Adverse Reactions: No Known Allergies Allergy (Verified 12/31/17 10:24) Past Medical History - General Information source: Patient - Social History Smoking Status: Never Smoker Cigarette use (# per day): No Chew tobacco use (# tins/day): No Smoking Education Provided: No Frequency of alcohol use: None Drug Abuse: None Lives with: Family Family History: Reviewed & Not Pertinent Patient has suicidal ideation: No Patient has homicidal ideation: No - Past Medical History Cardiac Medical History: Reports: None Pulmonary Medical History: Reports: None EENT Medical History: Reports: None Neurological Medical History: Reports: None Endocrine Medical History: Reports: None Renal/ Medical History: Reports: None Malignancy Medical History: Reports None GI Medical History: Reports: Hx Gastroesophageal Reflux Disease Musculoskeletal Medical History: Reports Hx Musculoskeletal Trauma - Nose and finger Skin Medical History: Reports None Psychiatric Medical History: Reports: Hx Attention Deficit Hyperactivity Disorder, Hx Depression - PTSD Traumatic Medical History: Reports: Hx Fractures - Nose and finger fracture Infectious Medical History: Reports: None - Immunizations Immunizations up to date: Yes Hx Diphtheria, Pertussis, Tetanus Vaccination: Yes Review of Systems - Review of Systems Constitutional: Recent illness EENT: Nose discharge, Sinus pressure, Throat pain Cardiovascular: No symptoms reported Respiratory: Cough Gastrointestinal: No symptoms reported Genitourinary: No symptoms reported Male Genitourinary: No symptoms reported Skin: No symptoms reported Hematologic/Lymphatic: No symptoms reported Neurological/Psychological: No symptoms reported -: Yes All other systems reviewed and negative Physical Exam - Vital signs Vitals: Temp Pulse Resp BP Pulse Ox 98.5 F 88 18 144/85 H 97 05/31/18 16:36 05/31/18 16:36 05/31/18 16:36 05/31/18 16:36 05/31/18 16:36 Interpretation: Normal - General General appearance: Appears well, Alert - HEENT Head: Normocephalic, Atraumatic Eyes: Normal Pupils: PERRL Ears: Normal External canal: Normal Tympanic membrane: Normal Sinus: Normal Nasal: Normal Mouth/Lips: Normal Mucous membranes: Normal Pharynx: Post nasal drainage Neck: Normal - Respiratory Respiratory status: No respiratory distress Chest status: Nontender Breath sounds: Normal Chest palpation: Normal - Cardiovascular Rhythm: Regular Heart sounds: Normal auscultation Murmur: No - Abdominal Inspection: Normal Distension: No distension Bowel sounds: Normal Tenderness: Nontender Organomegaly: No organomegaly - Back Back: Normal, Nontender - Extremities General upper extremity: Normal inspection, Nontender, Normal color, Normal ROM , Normal temperature General lower extremity: Normal inspection, Nontender, Normal color, Normal ROM , Normal temperature, Normal weight bearing. No: Maira's sign - Neurological Neuro grossly intact: Yes Cognition: Normal Orientation: AAOx4 Calli Coma Scale Eye Opening: Spontaneous Calli Coma Scale Verbal: Oriented Calli Coma Scale Motor: Obeys Commands Calli Coma Scale Total: 15 Speech: Normal Motor strength normal: LUE, RUE, LLE, RLE Sensory: Normal - Psychological Associated symptoms: Normal affect, Normal mood - Skin Skin Temperature: Warm Skin Moisture: Dry Skin Color: Normal Course - Re-evaluation Re-evalutation: 05/31/18 17:49 Assessment consistent with an upper respiratory infection. Patient was treated with Claritin, Sudafed, Mucinex, and ibuprofen. He was instructed on use of these at home. Patient was discharged home to follow-up with primary doctor. After performing a Medical Screening Examination, I estimate there is LOW risk for ACUTE CORONARY SYNDROME, RESPIRATORY FAILURE, SEPSIS OR MENINGITIS, thus I consider the discharge disposition reasonable. I have reevaluated this patient multiple times and no significant life threatening changes are noted. The patient and I have discussed the diagnosis and risks, and we agree with discharging home with close follow-up. We also discussed returning to the Emergency Department immediately if new or worsening symptoms occur. We have discussed the symptoms which are most concerning (e.g., changing or worsening pain, trouble swallowing or breathing, neck stiffness, fever) that necessitate immediate return. - Vital Signs Vital signs: Temp Pulse Resp BP Pulse Ox 98.5 F 85 18 132/87 H 97 05/31/18 16:36 05/31/18 17:34 05/31/18 17:34 05/31/18 17:34 05/31/18 17:34 Discharge - Discharge Clinical Impression: URI (upper respiratory infection) Qualifiers: URI type: unspecified URI Qualified Code(s): J06.9 - Acute upper respiratory infection, unspecified Condition: Stable Disposition: HOME, SELF-CARE Instructions: Family Physicians / Practices Additional Instructions: UPPER RESPIRATORY ILLNESS: You have a viral infection of the respiratory passages -- a "cold." This common infection causes nasal congestion, drainage, and often sore throat and cough. It is highly contagious. The disease usually lasts about 10 to 14 days. There is no "cure" for the viral infection -- it must run its course. If there is a complication, such as bacterial infection in the nose, sinuses, middle ear, or bronchial tubes, antibiotics may be required. The antibiotics won't affect the virus. Drink plenty of fluids. A humidifier may help. An expectorant medication or decongestant may make you more comfortable. Use acetaminophen or ibuprofen for fever or aches. See the doctor if fever persists over two days, if there is any significant worsening of your symptoms, or if you simply fail to improve as expected. DECONGESTANT MEDICATION: A decongestant medicine has been suggested. Often this medicine is combined in the same tablet with an antihistamine or expectorant. This type of medicine is helpful in treating a bad cold or sinus condition, as well as in treatment of the nasal congestion of hay fever. It is not of much benefit for lung infections. Decongestant medicines are related to stimulants. They can cause an increase in blood pressure and heart rate. Persons with heart disease and high blood pressure should not take decongestants without discussing this with the physician. If you develop palpitations, chest pain, headache, or tremors, stop the medicine and consult your physician. COUGH-SUPPRESSANT & EXPECTORANT MEDICATION: You are to use a cough medication as needed for relief of symptoms. This medicine is a combination of an expectorant (to make the mucous thinner and more easily "coughed up") and a cough suppressant (to reduce the frequency of coughing). The cough-suppressant medicine is related to narcotics. You may experience mild nausea and sleepiness. Some patients who are very sensitive to narcotics may have stomach pain from this medicine. Taking the medicine with food reduces these side effects. Do not drive or work with machinery until you know how this medicine affects you. The expectorant should have no side effects. Iodine-containing expectorants (such as organidin) should not be taken by persons with active thyroid disease unless approved by your doctor. Call the doctor if you develop shortness of breath, hives, rash, itching, lightheadedness, or severe nausea and vomiting. USE OF ACETAMINOPHEN (Tylenol): Acetaminophen may be taken for pain relief or fever control. It's much safer than aspirin, offering a wider range of "safe" dosages. It is safe during . Some brand names are Tylenol, Panadol, Datril, Anacin 3, Tempra, and Liquiprin. Acetaminophen can be repeated every four hours. The following are maximum recommended dosages: >89 pounds or adults 650 mg to 900 mg Acetaminophen can be repeated every four hours. Maximum dose not to exceed 4000 mg a day. SMOKING: If you smoke, you should stop smoking. The tar and chemicals in cigarette smoke are harmful. Smoking has been shown to cause: emphysema chronic bronchitis lung cancer mouth and throat cancer stomach and pancreas cancer premature aging defects In addition, smoking increases ear and lung infections in children of smokers. You were treated today with Claritin 10 mg Sudafed 30 mg, Mucinex 600 mg, and ibuprofen 600 mg, for your cough cold congestion.. You can also use Flonase nasal spray which is [id number]-[id number] that will help to clear up the nasal congestion and help to decrease your cough. You could also use salt and soda solution to reduce the amount of postnasal drip you have which will also reduce her cough. Salt and soda solution 1 quart of water 1 tablespoon of salt 1 teaspoon of baking soda Mixed 3 ingredients together and boil for 1 minute Placed in a covered quart jar Use 1/2 ounce of cold solution to gargle 3 times a day FOLLOW-UP CARE: If you have been referred to a physician for follow-up care, call the physician s office for an appointment as you were instructed or within the next two days. If you experience worsening or a significant change in your symptoms, notify the physician immediately or return to the Emergency Department at any time for re-evaluation. Forms: Elevated Blood Pressure, Return to Work
== END 2018-05-31 17:46 | disposition home or self-care (01) ==
LOC: ER 16:30
DX: J06.9 Acute upper respiratory infection, unspecified (principal); R50.9 Fever, unspecified
CPT/HCPCS: 99283

== ENCOUNTER 2018-07-29 21:56 | Emergency (ER) | payer SELFPAY ==
[2018-07-29] MEDS ORDERED: NORMAL SALINE 1000 ML 1,000 ML IV ONE (23:04)
[2018-07-29] MEDS ORDERED: ONDANSETRON HCL INJ/PF 4 MG/2 ML SDV IV ONE (23:04)
[2018-07-29] MEDS ORDERED: KETOROLAC TROMETHAMINE INJ/PF 30 MG/1 ML SDV IV ONE (23:09)
--- NOTE | 2018-07-29 23:17 | ER Document Report ---
ED General - General Chief Complaint: Nausea/Vomiting/Diarrhea Stated Complaint: FLU SYMPTOMS Time Seen by Provider: 07/29/18 22:58 Notes: Patient is a 33-year-old male who presents with complaint nausea vomiting diarrhea. He also has some headache and light sensitivity. He says he feels achy all over. Patient says his daughters had the same symptoms and that she is had a lot of vomiting diarrhea as well. No fevers. Denies any abdominal pain except for some intermittent crampy abdominal pain. Says he cannot hold down any liquids or food. Symptoms started earlier today. He denies being allergic to any medications. The only medications he sometimes is prescribed psychiatric medications which he is not currently on. TRAVEL OUTSIDE OF THE [place] IN LAST 30 DAYS: No - Related Data Allergies/Adverse Reactions: No Known Allergies Allergy (Verified 12/31/17 10:24) Past Medical History - Social History Smoking Status: Never Smoker Frequency of alcohol use: None Drug Abuse: None Family History: Reviewed & Not Pertinent Renal/ Medical History: Denies: Hx Peritoneal Dialysis GI Medical History: Reports: Hx Gastroesophageal Reflux Disease Musculoskeletal Medical History: Reports Hx Musculoskeletal Trauma - Nose and finger Psychiatric Medical History: Reports: Hx Attention Deficit Hyperactivity Disorder, Hx Depression - PTSD Traumatic Medical History: Reports: Hx Fractures - Nose and finger fracture - Immunizations Immunizations up to date: Yes Hx Diphtheria, Pertussis, Tetanus Vaccination: Yes Review of Systems - Review of Systems Notes: My Normal Review Basic REVIEW OF SYSTEMS: CONSTITUTIONAL : Denies fever, chills, or sweats. Denies recent illness. EENT: Denies eye, ear, throat, or mouth pain or symptoms. Denies nasal or sinus congestion. CARDIOVASCULAR: Denies chest pain. RESPIRATORY: Denies cough, cold, or chest congestion. Denies shortness of breath, difficulty breathing, or wheezing. GASTROINTESTINAL: Denies abdominal pain. Vomiting and diarrhea MUSCULOSKELETAL: Body aches SKIN: Denies rash or skin lesions. NEUROLOGICAL: Denies altered mental status or loss of consciousness. Has a headache. Denies weakness or paralysis or loss of use of either side. Denies problems with gait or speech. Denies sensory or motor loss. ALL OTHER SYSTEMS REVIEWED AND NEGATIVE. Physical Exam - Vital signs Vitals: Temp Pulse Resp BP Pulse Ox 97.6 F 109 H 14 131/81 H 98 07/29/18 22:36 07/29/18 22:36 07/29/18 22:36 07/29/18 22:36 07/29/18 22:36 - Notes Notes: General Appearance: Well nourished, alert, cooperative, no acute distress, no obvious discomfort. Vitals: reviewed, See vital signs table. Head: no swelling or tenderness to the head Eyes: PERRL, EOMI, Conjuctiva clear Mouth: No decreasd moisture Neck: Supple, no neck tenderness Lungs: No wheezing, No rales, No rhonci, No accessory muscle use, good air exchange bilaterally. Heart: Tachycardic rate, Regular rythm, No murmur, no rub Abdomen: Normal BS, soft, No rigidity, mild diffuse abdominal tenderness, No guarding, no rebound Extremities: strength 5/5 in all extremities, good pulses in all extremities, no swelling or tenderness in the extremities, no edema. Skin: warm, dry, appropriate color, no rash Neuro: speech clear, oriented x 3, normal affect, responds appropriately to questions. Cranial nerves II through XII are intact. Distal sensation intact. Patient moves all extremities without difficulty. Course - Re-evaluation Re-evalutation: 07/30/18 00:56 On reevaluation patient is feeling improved. His nausea is gone.. His heart rate is still slightly tachycardic on auscultation. I will give him another liter of fluids. Have given some water to try to drink. 07/30/18 02:17 Patient is able to drink fluids without difficulty. He feels much improved. He looks well on exam. At this time I feel he safe to be discharged home. Strongly encouraged him return to ER if he has intractable vomiting, fevers, blood in his stool, and feels he is worsening in any way. Patient has benign abdomina exam and therefore I do not feel that he needs to go forward with any imaging at this time. Dictation of this chart was performed using voice recognition software; therefore, there may be some unintended grammatical errors. - Vital Signs Vital signs: Temp Pulse Resp BP Pulse Ox 97.6 F 109 H 14 131/81 H 98 07/29/18 22:36 07/29/18 22:36 07/29/18 22:36 07/29/18 22:36 07/29/18 22:36 - Laboratory Result Diagrams: 07/29/18 23:14 07/29/18 23:14 Laboratory results interpreted by me: 07/29/18 07/29/18 23:14 23:14 WBC 12.7 H Seg Neuts % (Manual) 87 H Lymphocytes % (Manual) 3 L Abs Neuts (Manual) 11.7 H Abs Lymphs (Manual) 0.4 L BUN 21 H Glucose 111 H Discharge - Discharge Clinical Impression: Vomiting and diarrhea Headache Qualifiers: Headache type: unspecified Headache chronicity pattern: acute headache Intractability: not intractable Qualified Code(s): R51 - Headache Condition: Good Disposition: HOME, SELF-CARE Additional Instructions: Please drink non-caffeinated liquids over the next 48 hours to stay well- hydrated. Please take the Zofran as 1 tablet every 4 hours as needed for nausea and vomiting. Please return to the ER immediately if you have recurrent headaches, intractable vomiting despite Zofran, abdominal pain, bloody stools, or if you feel that you are worsening in any way. Prescriptions: Ondansetron [Zofran Odt 4 mg Tablet] 1 tab PO Q4H PRN #15 tab.rapdis PRN Reason: For Nausea/Vomiting Forms: Return to Work
[2018-07-29 23:33] LABS: HEMOGLOBIN 16.4 g/dL (13.5-17.0); MEAN CORPUSCULAR HEMOGLOBIN 31.7 pg (27.0-33.4); MEAN CORPUSCULAR HGB CONC 34.8 g/dL (32.0-36.0); MEAN CORPUSCULAR VOLUME 91 fl (80-97); PLATELET COUNT 328 10^3/uL (150-450); RED BLOOD COUNT 5.16 10^6/uL (4.35-5.55); RED CELL DISTRIBUTION WIDTH 12.4 % (11.5-14.0); WHITE BLOOD COUNT 12.7 10^3/uL (4.0-10.5)
[2018-07-29 23:45] LABS: ANION GAP 13 (5-19); BLOOD UREA NITROGEN 21 mg/dL (7-20); CALCIUM 9.6 mg/dL (8.4-10.2); CARBON DIOXIDE 25 mmol/L (22-30); CHLORIDE 106 mmol/L (98-107); GLUCOSE 111 mg/dL (75-110)
[2018-07-29 23:50] LABS: ABSOLUTE LYMPHOCYTES# (MANUAL) 0.4 10^3/uL (0.5-4.7); ABSOLUTE MONOCYTES # (MANUAL) 0.6 10^3/uL (0.1-1.4); ABSOLUTE NEUTROPHILS# (MANUAL) 11.7 10^3/uL (1.7-8.2); BAND NEUTROPHILS % (MANUAL) 5 % (3-5); BASOPHILS % (MANUAL) 0 % (0-2); EOSINOPHILS % (MANUAL) 0 % (0-6); LYMPHOCYTES % (MANUAL) 3 % (13-45); MONOCYTES % (MANUAL) 5 % (3-13); SEGMENTED NEUTROPHILS % (MAN) 87 % (42-78); TOTAL CELLS COUNTED 100
[2018-07-29 23:51] LABS: PLATELET COMMENT ADEQUATE; RBC MORPHOLOGY COMMENT NORMO-CYTIC/CHROMIC; TOXIC VACUOLATION PRESENT
[2018-07-30] MEDS ORDERED: NORMAL SALINE 1000 ML 1,000 ML IV ONE (00:52)
[2018-07-30] MEDS ORDERED: ONDANSETRON ODT 4 MG TAB (6 TAB/ER DISP) PO PRN (02:15)
[2018-07-30 02:36] VITALS: BP 126/65
== END 2018-07-30 02:45 | disposition home or self-care (01) ==
LOC: ER 21:56
DX: R11.2 Nausea with vomiting, unspecified (principal); R19.7 Diarrhea, unspecified; R51 Headache; H53.149 Visual discomfort, unspecified; R10.9 Unspecified abdominal pain; R10.817 Generalized abdominal tenderness; R00.0 Tachycardia, unspecified; Z87.19 Personal history of other diseases of the digestive system
CPT/HCPCS: 99283; 96361; 96374; 96375; 36415; 83735; 85025; 80048; J1885; J2405; J7030 ×2

== ENCOUNTER 2018-11-29 17:34 | Emergency (ER) | payer SELFPAY ==
[2018-11-29] MEDS ORDERED: ASPIRIN 81 MG TABLET, CHEWABLE PO ONE (20:10)
--- NOTE | 2018-11-29 20:12 | ER Document Report ---
ED Medical Screen (RME) - General Chief Complaint: Chest Pain Stated Complaint: CHEST PAIN Time Seen by Provider: 11/29/18 20:10 Mode of Arrival: Ambulatory Information source: Patient Notes: 33-year-old male presented to ED for complaint of chest pain. He states this started about 4 PM and was to the left side of his chest going down the left arm with numbness to the left arm. He states the pain was a 5 out of 5 at 4 PM. He states the pain has decreased to a 2 out of 5. He no longer has pain down his arm. He has no past medical history of blood pressure cholesterol or any heart problems. He states he is a former smoker drinks every other day. States mother has high blood pressure and cholesterol in dad's had multiple heart attacks but is unsure of what age he was when he had his first 1. Patient is alert oriented respirations regular and unlabored speaking in full sentences walks with a even steady gait. I have greeted and performed a rapid initial assessment of this patient. A comprehensive ED assessment and evaluation of the patient, analysis of test results and completion of medical decision making process will be conducted by an additional ED providers. Dictation of this chart was performed using voice recognition software; therefore, there may be some unintended grammatical errors. TRAVEL OUTSIDE OF THE [place] IN LAST 30 DAYS: No - Related Data Allergies/Adverse Reactions: No Known Allergies Allergy (Verified 12/31/17 10:24) Past Medical History - Social History Chew tobacco use (# tins/day): No Frequency of alcohol use: Social Drug Abuse: None Renal/ Medical History: Denies: Hx Peritoneal Dialysis GI Medical History: Reports: Hx Gastroesophageal Reflux Disease Musculoskeltal Medical History: Reports Hx Musculoskeletal Trauma - Nose and finger Psychiatric Medical History: Reports: Hx Attention Deficit Hyperactivity Disorder, Hx Depression - PTSD Traumatic Medical History: Reports: Hx Fractures - Nose and finger fracture - Immunizations Immunizations up to date: Yes Hx Diphtheria, Pertussis, Tetanus Vaccination: Yes Physical Exam - Vital signs Vitals: Temp Pulse Resp BP Pulse Ox 98.0 F 78 18 119/77 99 11/29/18 18:37 11/29/18 18:37 11/29/18 18:37 11/29/18 18:37 11/29/18 18:37 Course - Vital Signs Vital signs: Temp Pulse Resp BP Pulse Ox 98.0 F 78 18 119/77 99 11/29/18 18:37 11/29/18 18:37 11/29/18 18:37 11/29/18 18:37 11/29/18 18:37
--- NOTE | 2018-11-29 20:43 | RADIOLOGY REPORT (SQ) ---
XR CHEST 2 VIEWS HISTORY: Left-sided chest pain. COMPARISON: 01/07/2017 FINDINGS: The heart size is within normal limits. No consolidation, pleural effusion, or pneumothorax is seen. There are no acute bony findings. IMPRESSION: No evidence of acute cardiopulmonary disease.
[2018-11-29 22:44] LABS: ABSOLUTE EOSINOPHILS # (AUTO) 0.1 10^3/uL (0.0-0.6); ABSOLUTE MONOCYTES (AUTO) 0.8 10^3/uL (0.1-1.4); ABSOLUTE NEUT (AUTO) 5.1 10^3/uL (1.7-8.2); BASOPHILS % (AUTO) 0.5 % (0-2); HEMATOCRIT 45.1 % (37.9-51.0); HEMOGLOBIN 15.6 g/dL (13.5-17.0); MEAN CORPUSCULAR HEMOGLOBIN 31.6 pg (27.0-33.4); MEAN CORPUSCULAR HGB CONC 34.5 g/dL (32.0-36.0); MEAN CORPUSCULAR VOLUME 91 fl (80-97); MONOCYTES % (AUTO) 8.9 % (3-13); PLATELET COUNT 345 10^3/uL (150-450); RED BLOOD COUNT 4.93 10^6/uL (4.35-5.55); RED CELL DISTRIBUTION WIDTH 12.5 % (11.5-14.0); SEGMENTED NEUTROPHILS % (AUTO) 56.6 % (42-78); TOTAL CELLS COUNTED % (AUTO) 100 %
[2018-11-29 23:02] LABS: ALANINE AMINOTRANSFERASE 22 U/L (21-72); ALBUMIN 4.8 g/dL (3.5-5.0); ALKALINE PHOSPHATASE 94 U/L (38-126); ANION GAP 11 (5-19); ASPARTATE AMINO TRANSFERASE 20 U/L (17-59); BILIRUBIN,DIRECT 0.3 mg/dL (0.0-0.4); BILIRUBIN,TOTAL 0.6 mg/dL (0.2-1.3); BLOOD UREA NITROGEN 16 mg/dL (7-20); CALCIUM 9.4 mg/dL (8.4-10.2); CARBON DIOXIDE 26 mmol/L (22-30); CHLORIDE 105 mmol/L (98-107); GLUCOSE 85 mg/dL (75-110); POTASSIUM 4.3 mmol/L (3.6-5.0); SODIUM 141.5 mmol/L (137-145); TOTAL PROTEIN 8.2 g/dL (6.3-8.2)
[2018-11-29 23:13] LABS: CREATINE KINASE MB 0.42 ng/mL (<4.55); TROPONIN I < 0.012 ng/mL
[2018-11-29 23:23] LABS: APPEARANCE,URINE SLIGHTLY-CLOUDY; BILIRUBIN,URINE NEGATIVE (NEGATIVE); COLOR,URINE YELLOW; GLUCOSE, URINE NEGATIVE (NEGATIVE); KETONES,URINE NEGATIVE (NEGATIVE); LEUKOCYTE ESTERASE,URINE NEGATIVE (NEGATIVE); NITRITE,URINE NEGATIVE (NEGATIVE); PROTEIN,URINE NEGATIVE (NEGATIVE); URINE SPECIFIC GRAVITY 1.032; UROBILINOGEN,URINE NEGATIVE mg/dL (<2.0)
--- NOTE | 2018-11-29 23:31 | EKG REPORT ---
SEVERITY:- NORMAL ECG - SINUS RHYTHM : Confirmed by: Saray Carter MD 29-Nov-2018 23:30:44
[2018-11-30 01:21] LABS: URINE AMPHETAMINES SCREEN NEGATIVE; URINE BARBITURATES SCREEN NEGATIVE; URINE BENZODIAZEPINES SCREEN NEGATIVE; URINE COCAINE SCREEN NEGATIVE; URINE MARIJUANA (THC) SCREEN NEGATIVE; URINE METHADONE SCREEN NEGATIVE; URINE PHENCYCLIDINE SCREEN NEGATIVE
--- NOTE | 2018-11-30 02:09 | ER Document Report ---
ED Cardiac - General Chief Complaint: Chest Pain Stated Complaint: CHEST PAIN Time Seen by Provider: 11/29/18 20:10 Mode of Arrival: Ambulatory Notes: Patient is a 33-year-old male who presents the emergency department with a chief complaint of left-sided chest pain and numbness in his left arm. He was driving around 1600 this evening and felt a sharp sensation in his left substernal chest. At the time my assessment he states that the pain has gone away. He received aspirin 324 in triage. He denies any heavy lifting, or any other strenuous activity. He denies any shortness of breath, difficulty breathing, or any other symptoms. Denies any abdominal pain. TRAVEL OUTSIDE OF THE [place] IN LAST 30 DAYS: No - Related Data Allergies/Adverse Reactions: No Known Allergies Allergy (Verified 12/31/17 10:24) Past Medical History - General Information source: Patient - Social History Smoking Status: Former Smoker Chew tobacco use (# tins/day): No Frequency of alcohol use: Social Drug Abuse: None Family History: Reviewed & Not Pertinent Patient has suicidal ideation: No Patient has homicidal ideation: No Renal/ Medical History: Denies: Hx Peritoneal Dialysis GI Medical History: Reports: Hx Gastroesophageal Reflux Disease Musculoskeletal Medical History: Reports Hx Musculoskeletal Trauma - Nose and finger Psychiatric Medical History: Reports: Hx Attention Deficit Hyperactivity Disorder, Hx Depression - PTSD Traumatic Medical History: Reports: Hx Fractures - Nose and finger fracture - Immunizations Immunizations up to date: Yes Hx Diphtheria, Pertussis, Tetanus Vaccination: Yes Review of Systems - Review of Systems Notes: REVIEW OF SYSTEMS: CONSTITUTIONAL : Denies recent illness. Denies recent unintentional weight loss. Denies fever, chills, or sweats. EENT: Denies eye, ear, throat, or mouth pain, discharge, or symptoms. Denies nasal or sinus congestion. CARDIOVASCULAR: See HPI RESPIRATORY: Denies shortness of breath, cough, congestion, difficulty breathing, or wheezing. GASTROINTESTINAL: Denies nausea, vomiting, and diarrhea. Denies abdominal pain. Denies constipation. GENITOURINARY: Denies difficulty urinating, burning, blood in urine, urgency or frequency. MUSCULOSKELETAL: Denies neck and back pain. Denies joint pain or swelling. SKIN: Denies rash, itchiness, or lesions HEMATOLOGIC : Denies easy bruising or bleeding. LYMPHATIC: Denies swollen, painful, enlarged glands. NEUROLOGICAL: Denies no numbness or tingling denies weakness. Denies headache. Denies altered mental status. Denies alteration in speech. PSYCHIATRIC: Denies stress, anxiety, alteration in sleep patterns, or depression. All other systems reviewed and negative. Physical Exam - Vital signs Vitals: Temp Pulse Resp BP Pulse Ox 98.0 F 78 18 119/77 99 11/29/18 18:37 11/29/18 18:37 11/29/18 18:37 11/29/18 18:37 11/29/18 18:37 - Notes Notes: PHYSICAL EXAMINATION: GENERAL: Appears well, healthy, well-nourished, no acute distress. HEAD: Normocephalic, atraumatic. EYES: PERRL, conjunctiva normal, all extraocular movements intact, sclera nonicteric ENT: Moist mucous membranes. NECK: Supple, no noticeable swelling, redness, rash. Normal range of motion. LUNGS: Equal breath sounds bilaterally and clear to auscultation. No wheezes rales or rhonchi. CARDIOVASCULAR: S1-S2, regular rate, regular rhythm. Radial pulses 2+, normal. Reproducible chest pain to left sternal border. ABDOMEN: Normoactive bowel sounds. Soft, nontender, no guarding, no rebound tenderness, and no masses palpated. EXTREMITIES: Normal strength and range of motion, no pitting or edema. No cyanosis. NEUROLOGICAL: Moves all extremities upon command. Strength 5/5 in all extre mities. PSYCH: Normal mood, normal affect. SKIN: Warm, dry. No rash, lesions, ulcerations noted. Normal skin turgor. Course - Re-evaluation Re-evalutation: 11/30/18 02:10 Differential diagnosis for the patient's chest pain includes ischemic chest pain (STEMI, NSTEMI, or unstable angina), pulmonary embolism, aortic dissection, pericarditis, chest wall pain. Based off patient's physical exam, history, EKG that does not show ST depressions or elevations, and troponin, the patient's heart score is 3 or less. Chest x-ray is negative for pneumonia, widened mediastinum, or pneumothorax. I do not suspect aortic dissection due to history, symmetrical pulses, chest x- ray, and vital signs. HEART Score: History:1 EK Age:0 Risk Factors:0 Troponin:0 Total: 0 A repeat troponin is not required at this time, as the patient's chest pain is reproducible upon palpation. He will take ibuprofen and Tylenol as needed for costochondritis. I have discussed with the patient the risk factors, age, and diagnostic studies. Based on these factors, the likelihood of the patient's chest pain being from a heart attack is a very low. Patient is able to make decisions for themself and verbalized understanding that their chest pain is most likely not due to heart attack. The patient has chosen to follow-up with a bow maker machine tender in regards to their chest pain. Verbal instructions for return to the emergency department was given, and patient verbalized understanding and will be discharged. - Vital Signs Vital signs: Temp Pulse Resp BP Pulse Ox 98.6 F 81 16 140/85 H 100 11/29/18 20:11 11/29/18 20:11 11/29/18 20:11 11/29/18 20:11 11/29/18 20:11 - Laboratory Result Diagrams: 11/29/18 22:25 11/29/18 22:25 - EKG Interpretation by Me Additional EKG results interpreted by me: 11/30/18 02:14 Sinus rhythm. Rate 87. OR 144; QRS 94; QT 348; QTc 419. No ST elevations or depressions. Increased amplitude of EKG, due to patient's thin size. Discharge - Discharge Clinical Impression: Costochondritis, acute Chest pain Qualifiers: Chest pain type: other chest pain Qualified Code(s): R07.89 - Other chest pain; R07.8 - Other chest pain Condition: Stable Disposition: HOME, SELF-CARE Additional Instructions: You were seen today for chest pain. Your chest pain may be due to costochondritis, muscle soreness in between your ribs. However, based on your cardiac enzyme testing, chest x-ray, and EKG it does not appear that it is from an immediately life-threatening cause at this time. Please follow-up with the primary care provider below for normal routine visits. Please return to emergency department immediately if you have worsening of your chest pain, shortness of breath, vomiting, become unable to exert yourself due to pain or difficulty breathing, you pass out, or have any pain that radiates into your arms, jaw, or back. Please also return if you have any additional symptoms that are concerning to you. You can take Tylenol 1000 mg and ibuprofen 600 mg every 6 hours as needed for any pain. Forms: Return to Work Referrals: [facility] [Provider Group] - Follow up as needed [facility] [Provider Group] - Follow up as needed
[2018-11-30 02:49] VITALS: BP 118/73
== END 2018-11-30 02:25 | disposition home or self-care (01) ==
LOC: ER 17:34
DX: M94.0 Chondrocostal junction syndrome [Tietze] (principal); R20.0 Anesthesia of skin; Z87.891 Personal history of nicotine dependence
CPT/HCPCS: 36415; 71046; 80053; 80307; 81001; 82553; 84484; 85025; 93005; 93010; 99285